=== PATIENT | female | born 1935 | race Two or more races ===

== ENCOUNTER 2017-04-13 09:13 | Inpatient (IN) | payer MEDICARE ==
[~2017-04-13] VITALS: Ht 149.9 cm; Wt 61.3 kg
[2017-04-13 11:52] VITALS: BP 194/81
[2017-04-13] MEDS ORDERED: CEFAZOLIN PMX 1GM/50ML 50 ML IVPB ONE (12:00)
[2017-04-13] MEDS ORDERED: PLEASE ENTER ALLERGIES MC SCH ×2 (12:30)
[2017-04-13] MEDS ORDERED: hydrALAzine 20 MG/ML, 1ML IV PRN (12:30)
[2017-04-13] MEDS ORDERED: PLEASE ENTER HEIGHT AND WEIGHT MC SCH (12:30)
[2017-04-13] MEDS ORDERED: ACETAMINOPHEN 325 MG TABLET PO PRN (12:30)
[2017-04-13] MEDS: SODIUM CHLORIDE 0.9% 1,000 ML IV SCH ×2 (12:33→19:39)
[2017-04-13 12:52] VITALS: BP 173/64
[2017-04-13 13:25] VITALS: BP 161/75
[2017-04-13] MEDS: AMLODIPINE 5 MG TABLET PO SCH (13:25)
[2017-04-13] MEDS ORDERED: CEFAZOLIN 1,000 MG ONE (15:24)
[2017-04-13] MEDS ORDERED: MIDAZOLAM 1 MG/ML, 5ML ONE (15:24)
[2017-04-13] MEDS ORDERED: CEFAZOLIN PMX 1GM/50ML 50 ML ONE (15:24)
[2017-04-13] MEDS ORDERED: FENTANYL PF 100 MCG/2ML ONE (15:24)
[2017-04-13] MEDS ORDERED: LIDOCAINE 2%, 20ML ONE (15:24)
[2017-04-13] MEDS ORDERED: ONDANSETRON 2MG/ML, 2ML ONE (15:40)
[2017-04-13] MEDS: PROMETHAZINE 25MG TABLET PO PRN (20:18)
[2017-04-13 20:19] VITALS: BP 130/63
[2017-04-13] MEDS ORDERED: ATORVASTATIN 20 MG TABLET PO SCH (21:00)
[2017-04-13] MEDS: metFORMIN 500 MG TABLET PO SCH (21:21)
[2017-04-13] MEDS: SODIUM CHLORIDE FLUSH 10ML SYR IVF SCH ×2 (21:21)
[2017-04-13] MEDS: CEFAZOLIN PMX 1GM/50ML 50 ML IVPB SCH (23:21)
[2017-04-14 01:36] VITALS: BP 132/70
[2017-04-14] MEDS: SODIUM CHLORIDE 0.9% 1,000 ML IV SCH ×2 (03:57→09:00)
[2017-04-14 05:00] LABS: HEMATOCRIT 34.4 % (34.6-47.8); HEMOGLOBIN 11.1 g/dL (11.7-16.4); WHITE BLOOD COUNT 7.6 x10^3/uL (3.4-10)
[2017-04-14 05:12] LABS: ASPARTATE AMINO TRANSFERASE 16 U/L (15-37); BLOOD UREA NITROGEN 11 mg/dL (7-18)
[2017-04-14] MEDS: PROMETHAZINE 25MG TABLET PO PRN (05:15)
[2017-04-14] MEDS ORDERED: ASPIRIN 81 MG TABLET EC PO SCH (06:00)
[2017-04-14] MEDS: CEFAZOLIN PMX 1GM/50ML 50 ML IVPB SCH (07:12)
[2017-04-14] MEDS ORDERED: OMEPRAZOLE 20 MG CAPSULE.DR PO SCH (07:30)
[2017-04-14] MEDS: metFORMIN 500 MG TABLET PO SCH (08:00)
[2017-04-14] MEDS: AMLODIPINE 5 MG TABLET PO SCH (08:21)
[2017-04-14 08:26] VITALS: BP 150/68
[2017-04-14] MEDS: SODIUM CHLORIDE FLUSH 10ML SYR IVF SCH ×2 (09:00)
[2017-04-14] MEDS ORDERED: LISINOPRIL 20 MG TABLET PO SCH (09:00)
[2017-04-14] MEDS ORDERED: ACET325T14 PO (09:15)
[2017-04-14] MEDS ORDERED: AMLO5TAB2 PO (09:15)
[2017-04-14] MEDS ORDERED: LISI-170 PO (09:15)
[2017-04-14] MEDS ORDERED: SIMV5TAB5 PO (09:39)
[2017-04-14] MEDS ORDERED: METF10002 PO (09:40)
[2017-04-14] MEDS ORDERED: GLYB1.252 PO (09:41)
[2017-04-14] MEDS ORDERED: OMEP-110 PO (09:43)
[2017-04-14] MEDS ORDERED: ONDA4TAB10 PO (09:45)
== END 2017-04-14 12:32 | disposition home or self-care (01) | DRG 243 ==
LOC: 5SO 11:42
PROVIDERS: ADMIT Internal Medicine Cardiovascular Disease; ATTEND Internal Medicine Cardiovascular Disease
PROC: 0JH606Z Insertion of Pacemaker, Dual Chamber into Chest Subcutaneous Tissue and Fascia, Open Approach (ICD-10-PCS; principal; 2017-04-13)
PROC: 02H63JZ Insertion of Pacemaker Lead into Right Atrium, Percutaneous Approach (ICD-10-PCS; 2017-04-13)
PROC: 02HK3JZ Insertion of Pacemaker Lead into Right Ventricle, Percutaneous Approach (ICD-10-PCS; 2017-04-13)
DX: I44.2 Atrioventricular block, complete (principal); E87.2 Acidosis; I11.0 Hypertensive heart disease with heart failure; E11.9 Type 2 diabetes mellitus without complications; I50.32 Chronic diastolic (congestive) heart failure; E78.5 Hyperlipidemia, unspecified; K21.9 Gastro-esophageal reflux disease without esophagitis; N28.9 Disorder of kidney and ureter, unspecified; F32.9 Major depressive disorder, single episode, unspecified; Z79.84 Long term (current) use of oral hypoglycemic drugs; Z79.899 Other long term (current) drug therapy; Z90.49 Acquired absence of other specified parts of digestive tract
CPT/HCPCS: 33208; 36415; 71010; 80053; 80061; 82962; 83036; 85025; 87324; 93005; 93306; 99156; C1779; C1785; C1892; J0690; J2250; J2405; J3010; J3490; Q0169; J7030